=== PATIENT | male | born 1960 | race African-American/Black ===

== ENCOUNTER 2016-08-04 07:49 | Day surgery (SDC) | payer MEDICARE ==
--- NOTE | 2016-08-03 09:30 | HP ---
DATE OF CLINIC: 07/29/2016 RD LUCIO : 1960 PLANNED PROCEDURE: Right Knee Arthroscopic Loose Body Removal, Hardware Removal and Chondroplasty DATE OF SURGERY: August 04, 2016 SURGEON: Marin Juan M.D. HISTORY OF PRESENT ILLNESS Rd Lucio is a 56 year old male. * Medication list reviewed with patient allergy list reviewed with patient. 56-year-old gentleman previously seen by Dr. Centeno and myself who has complaints of right knee pain. A couple of specific things; he's got pain with activity that seems to be related to intra-articular pathology. He also has significant pain in the anterior portion of his knee near some previously placed hardware nito for surgery that was done when he was very young after it sounds like he avulsed his patellar tendon. He is interested in having both of these addressed. He has tried anti-inflammatories without adequate relief of his symptoms. He has complaints of both pain and mechanical symptoms. He localizes most of this pain to the medial joint-line that occurs with standing from a seated position or prolonged walking. In addition, he has pain in the anterior-inferior portion of his knee near previously placed nito. They are tender to palpation and get irritated when he is more active. He states that the pain from the 2 complaint is approximately equivalent and he would very much like to have both of them addressed if he can. He has no other active extremity complaints that he wants to discuss today. He has previously had a shoulder arthroscopy with Dr. Centeno and states that this is doing well. After discussion and review of treatment options, both operative and non-operative, he has elected to proceed with surgery and presents today preoperatively. CURRENT MEDICATION * *Narcotic Contract Miscellaneous (not specified) 0 days, 0 refills * Amitriptyline HCl 25 MG Tablet 1 every bedtime 0 days, 0 refills * AmLODIPine Besylate 10 MG Tablet 1 once a day 0 days, 0 refills * Aspirin 81 MG Tablet Chewable as directed 0 days, 0 refills * B Complex Tablet as directed 0 days, 0 refills * Centrum Tablet as directed 0 days, 0 refills * Chantix 1 MG Tablet 1 twice a day 0 days, 0 refills * Chlorthalidone 25 MG Tablet half a tablet every day 0 days, 0 refills * Colace 100 MG Capsule 1 twice a day 0 days, 0 refills * FLUoxetine HCl 40 MG Capsule 1 once a day 0 days, 0 refills * Hydrocodone-Acetaminophen 5-325 MG Tablet as directed 1tab po 6 hrs prn given by Ivonne Lopez, 0 days, 0 refills * Lortab 10-325 MG Tablet 1-2 tabs every 6 to 8 hours prn pain 0 days, 0 refills * Losartan Potassium 100 MG Tablet 1 once a day 0 days, 0 refills * Polyethylene Glycol 3350 Powder as directed 1/2 cap daily, 0 days, 0 refills * Pravastatin Sodium 20 MG Tablet 1 once a day 0 days, 0 refills * RaNITidine HCl 150 MG Tablet 1 twice a day 0 days, 0 refills * Sildenafil 20 mg Tablet 1 once a day 0 days, 0 refills * TraMADol HCl 50 MG Tablet 1 twice a day called in to pharmacy, 0 days, 0 refills * TraZODone HCl 100 MG Tablet 1 twice a day 0 days, 0 refills * Vitamin D 1000 UNIT Tablet 1 once a day 0 days, 0 refills * Voltaren 1 % Gel as directed Apply a small amount to affected joint up to four times a day., 0 days, 0 refills PAST MEDICAL/SURGICAL HISTORY Reported: Shoulder Arthroscopy Right shoulder scope, RCR, SAD performed by Dr.Brian Centeno on 03/09/2016. Medical: Reported numbness, Reported tingling, history of Arthritis, and Hypertension. Surgical / Procedural: Prior surgery back fusion, laminectomy, foot surgery. Prostate cancer. SOCIAL HISTORY Behavioral: Tobacco use 5 cigs a day, current smoker smokes 1/2 pack per day for the past ten years, and smoking status: Current some day smoker. Work: Occupation. ALLERGIES * Lactose FAMILY HISTORY 4 children living REVIEW OF SYSTEMS No recent constitutional symptoms to include fevers and chills. No recent cardiovascular symptoms to include chest pain or palpitations. No recent respiratory symptoms to include shortness of breath or recent infections. PHYSICAL FINDINGS * Vitals taken 07/29/2016 09:24 am BP-Sitting R 139/92 mmHg BP Cuff Size Regular Pulse Rate-Sitting 65 bpm Temp-Oral 97.2 F Height 72 in Weight 231 lbs Body Mass Index 31.3 kg/m2 Body Surface Area 2.26 m2 Pain Level 5 Ears, Nose, Throat: * ENT: normal. Lungs: * Clear to auscultation. Cardiovascular: Heart Rate and Rhythm: * Normal. Abdomen: * Normal. Neurological: Motor: * Dominant Hand = Right Hand. Patient is a well-developed, well-nourished male in no acute distress. He is awake, alert and conversant throughout the encounter. CARDIOVASCULAR: Intact peripheral pulses on bilateral lower extremities. No significant edema on inspection of bilateral lower extremities. NEUROLOGIC: Patient had intact coordinated composite motion of the bilateral lower extremities and sensation intact to light touch in all distributions of bilateral lower extremities. PSYCHIATRIC: Patient was oriented to person, place and time and displayed appropriate mood and affect during the encounter. SKIN: Exam of the skin on bilateral lower extremities showed no significant scars, lesions, rashes or masses. FOCUSED MUSCULOSKELETAL EXAM: Patient ambulates with antalgia on the right side, shortened stance phase. He has normal resting station of the hips, knees and ankles. His right knee shows no erythema, ecchymosis, he does have a little bit of an effusion. He has tenderness to palpation over the anterior knee in the region of the previously placed nito about the level of his tubercle, particularly the distal one is fairly prominent and there is a little bit of almost callus formation over the skin at this point. His knee has ROM from 0 to about 95-100 degrees. He is stable to varus and valgus stress. He has some mechanical symptoms when he goes through motion. He has a little bit of pseudolaxity to both varus and valgus stress, but he has a firm endpoint on both. Negative anterior and posterior drawer and a negative Luz. He has a warm and well perfused leg distally and he is able to perform a SLR and has normal resting tone. IMAGING Review of his x-rays shows significant osteoarthrosis of his bilateral knees, but certainly right greater than left. He's got some marginal osteophytes, pointing of his tibial spines is primarily of the medial compartment and particularly the patellofemoral compartment changes. He does appear to have a loose body on his [place] view. Please see the radiologists interpretation for additional details. ASSESSMENT 56-year-old gentleman with intra-articular pathology on the right knee consistent with osteoarthritis including some loose bodies as well as symptomatic hardware from a previous surgery in the region of his tibial tubercle on the same side. THERAPY * Patient not eligible for fall risk assessment. PLAN * Unilateral post-traumatic osteoarthritis, right knee Percocet 5-325 MG TABS, Take 1-2 tablets every 4 hours as needed for pain, 14 days, 0 refills * Knee Arthroscopy (Right) with LB removal, hardware removal and chondroplasty CARE TEAM Need To Load Need to Load Ph.D.Medical Genetics SURGICAL CONSENT We have discussed surgical options including right knee arthroscopic LB removal, hardware removal, chondroplasty and non-operative management. The patient was counseled in detail regarding the diagnosis, treatment options available, prognosis of each treatment option and the potential risks and complications. The risks of surgery include, but are not limited to, anesthetic , neurovascular complications, pulmonary embolism, deep vein thrombosis, wound dehiscence, failure of any or all of the discussed procedures, infection of the joint or surrounding soft tissue, need for revision surgery, chronic pain, limitations in activities of daily living, inability to return to work, and loss of normal range of motion or functional use of the extremity. There is the possibility of failure over time that may require additional operative or non-operative treatment. The patient acknowledged that there are a number of perioperative risks not mentioned here and would still like to proceed. The patient is aware of and understands these risks, and wishes to proceed with the proposed surgical procedure and other procedures as indicated at the time of surgery. We will have the patient see their PCP for a preoperative medical risk assessment. The preoperative instructions were reviewed with the patient and all questions were answered. PB/sg
[2016-08-04] MEDS ORDERED: CEFAZOLIN SODIUM 2 GRAM PREMIX 100 ML IV ONE (07:51)
[2016-08-04] MEDS ORDERED: IV START KIT ONE (07:52)
[2016-08-04] MEDS ORDERED: LACTATED RINGERS 1,000 ML ONE (07:52)
[2016-08-04] MEDS ORDERED: CEFAZOLIN SODIUM 2 GRAM PREMIX 100 ML IV PRN (08:15)
[2016-08-04] MEDS ORDERED: LIDOCAINE 2% (PRES FREE) 5 ML VIAL ONE (09:06)
[2016-08-04] MEDS ORDERED: FENTANYL 100 MCG/2 ML VIAL ONE ×2 (09:06→09:28)
[2016-08-04] MEDS ORDERED: MIDAZOLAM HCL 1 MG/ML 2ML VIAL ONE ×2 (09:06→09:28)
[2016-08-04] MEDS ORDERED: PROPOFOL 20 ML IV ONE ×2 (09:06→11:37)
[2016-08-04] MEDS ORDERED: ROPIVACAINE 0.5% 30 ML VIAL ONE (09:52)
[2016-08-04] MEDS ORDERED: NERVE BLOCK PROCEDURAL TRAY 1 EACH ONE (09:52)
[2016-08-04] MEDS ORDERED: SUCCINYLCHOLINE CHL 20 MG/ML DOSE ONE (10:41)
[2016-08-04] MEDS ORDERED: LACTATED RINGERS 1,000 ML IV SCH ×2 (10:45→12:27)
[2016-08-04] MEDS ORDERED: HYDRALAZINE HCL 20 MG/1 ML VIAL IV PRN (10:45)
[2016-08-04] MEDS ORDERED: ONDANSETRON 4 MG/2ML 2 ML VIAL IV PRN ×2 (10:45→12:27)
[2016-08-04] MEDS ORDERED: MEPERIDINE 25 MG/ML SYRINGE IV PRN (10:45)
[2016-08-04] MEDS ORDERED: NALOXONE HCL 0.4 MG/ML VIAL IV PRN (10:45)
[2016-08-04] MEDS ORDERED: PROMETHAZINE HCL 25 MG/ML VIAL IM PRN (10:45)
[2016-08-04] MEDS ORDERED: ATROPINE SULFATE 0.4 MG/1 ML VIAL IV PRN (10:45)
[2016-08-04] MEDS ORDERED: HYDROMORPHONE HCL 1 MG/ML SYRINGE IV PRN ×2 (10:45→12:27)
[2016-08-04] MEDS ORDERED: FENTANYL 100 MCG/2 ML VIAL IV PRN (10:45)
[2016-08-04] MEDS ORDERED: LABETALOL HCL 5 MG/ML 20ML VIAL IV PRN (10:45)
[2016-08-04] MEDS ORDERED: HYDROMORPHONE HCL 2 MG/ML SYRINGE ONE (10:50)
[2016-08-04] MEDS ORDERED: EPHEDRINE SULFATE UD SYR 25 MG 25 MG/5 ML SYRINGE IV ONE (10:59)
[2016-08-04] MEDS ORDERED: VASOPRESSIN 20 UNITS/ML VIAL ONE (11:06)
[2016-08-04] MEDS ORDERED: GLYCOPYRROLATE 0.2 MG/ML 1ML VIAL ONE (11:07)
[2016-08-04] MEDS ORDERED: DEXAMETHASONE SOD PHOS 4 MG/1 ML VIAL ONE (11:09)
[2016-08-04] MEDS ORDERED: OXYCODONE HCL 5 MG TABLET PO PRN (12:27)
[2016-08-04] MEDS ORDERED: ACETAMINOPHEN 325 MG TABLET PO PRN (12:27)
[2016-08-04] MEDS ORDERED: DIPHENHYDRAMINE HCL 50 MG/1 ML VIAL IV PRN (12:27)
[2016-08-04] MEDS ORDERED: OXYCODONE HCL 5 MG TABLET ONE (13:06)
--- NOTE | 2016-08-04 13:14 | RAD ---
INTRAOPERATIVE FLUOROSCOPY HISTORY: Hardware removal. TECHNIQUE: 4.2 seconds of fluoroscopy time was provided for Dr. Juan for purposes of procedural guidance. 1 fluoroscopic spot images were submitted for review. FINDINGS: The tip of a clamp projects over the proximal right tibia. Redemonstration of tibial tubercle nito. IMPRESSION: Fluoroscopy provided for procedural guidance.
--- NOTE | 2016-08-09 16:58 | PCMBPN ---
Brief Post Op Note: Date of Procedure: 08/04/16 Start Time: 1100 Preoperative Diagnosis: 1. right knee loose bodies, chondromalacia, symptomatic hardware Postoperative Diagnosis: 1. right knee medial meniscus tear, chondromalacia, symptomatic hardware Procedure: right knee arthroscopy with partial medial meniscectomy, shaving chondroplasty, open removal of hardware Surgeon: Marin Juan MD Assist: Mark Lagos PA-C Anesthesia: Feliberto Peterson Findings: as above Condition: stable to PACU Complications: none IV Fluids: 800 mLs of LR Urine Output: 0 mLs Estimated Blood Loss: 20 mLs Tourniquet Time: 26 min at 250 mm Hg Specimens: none Implants: none Drains: none Marin Juan MD
--- NOTE | 2016-08-10 10:41 | OP ---
Rd LUCIO : 1960 [id number] DATE OF PROCEDURE: August 04, 2016 PREOPERATIVE DIAGNOSES: Right knee loose bodies, chondromalacia and symptomatic hardware. POSTOPERATIVE DIAGNOSES: Right knee medial meniscus tear, chondromalacia, and symptomatic hardware. PROCEDURE PERFORMED: RIGHT KNEE ARTHROSCOPY WITH PARTIAL MEDIAL MENISCECTOMY, SHAVING CHONDROPLASTY OF THE MEDIAL FEMORAL CONDYLE AND OPEN REMOVAL OF HARDWARE. SURGEON: Marin Juan M.D. CUSTOMER SERVICE SALES CONSULTANT: Bret Lagos P.A.-C. ANESTHESIA: Kiki IveyNJohn. SPECIMENS: No material was sent to the laboratory. ESTIMATED BLOOD LOSS: 20 mL FLUIDS REPLACED: 800 mL of crystalloid. TOURNIQUET TIME: 26 minutes at 250 mmHg. URINE OUTPUT: None. IMPLANTS: No implants placed, two nito were removed. DRAINS: No drains. INDICATIONS: This is a 56-year-old gentleman with long-standing right knee pain who has a history of a tibial tubercle osteotomy of some kind with a repair using a couple of nito. The prominence of these nito is painful and the patient also has pain over the medial portion of his knee. His physical exam is suggestive of loose bodies versus meniscal pathology as well as some chondromalacia and his radiographic findings support this. He desires a definitive management with removal of his nito and an arthroscopy for debridement of the knee. DESCRIPTION OF PROCEDURE: The patient was identified in the preoperative holding area where he was marked with an indelible marker by the operating surgeon. He was taken to the operating room where he was placed in the supine position operating room table. General anesthesia was induced. Perioperative antibiotics were administered. A well padded pre-calibrated nonsterile tourniquet was placed on his right upper thigh. He was prepped and draped in the usual sterile fashion for surgery. An operative time out was performed and confirmed by all members of the operative team. The patient's leg was elevated and exsanguinated using an Esmarch bandage and the tourniquet was inflated to 250 mmHg. His previous anterior knee incision was reopened at its inferior margin and dissection was carried down using intraoperative fluoroscopy to localize the nito. We identified one staple distal to the insertion of the patellar tendon and we were able to grasp this and remove it. The other one was proximal to the tubercle into the insertion of the patellar tendon so a split was made in line with the fibers of the patellar tendons centrally. This was retracted and the staple was identified and removed through this split. The wound was copiously irrigated with sterile saline. The tendon was re-apposed with #0 Vicryl and then #2-0 Vicryl in the paratenon and #3-0 Vicryl in the subcutaneous tissues and Nylon in the skin. The knee was flexed down and our lateral arthroscopic portal was created. The 30 degree viewing arthroscope was inserted into the knee. Optics were directed medially and the medial portal was localized and created in a standard fashion. Diagnostic arthroscopy was performed which demonstrated no loose bodies in the gutters. There was significant degenerative wear over the medial portion over the medial femoral condyle distally as well as a medial meniscus tear. The ACL and PCL were intact. The lateral meniscus was largely intact. There was some grade 2 and 3 changes over the lateral femoral condyle. Examination of the far distal and anterior portion of the medial femoral condyle showed a large area of complete grade 4 changes. This carried over into the trochlea and the patellofemoral joint showed grade 4 changes on both sides patellar and trochlear. Inspection of the posterior knee showed no loose bodies floating freely. It was felt that the osseous bodies seen on the x-rays were embedded in the posterior capsule. At this point the probe was exchanged for an arthroscopic biter which was used to perform a partial medial meniscectomy. This was exchanged for a resector shaver which was used to smooth down this and complete the partial medial meniscectomy. We also performed some shaving chondroplasty of loose chondral flaps around the margins of his full thickness cartilage loss. No attempt was made to dissect the posterior capsule in order to identify this posterior osseous body that would represent an increased risk in the procedure without a clear benefit when the body was not moving freely within the joint. At this point we felt that we had addressed the patient's intra-articular pathology so the camera and insurance were removed from the knee. Portal sites were closed with #4-0 Nylon and a sterile dressing of Xeroform, fluffs, ABDs, web roll and an [place] bandage was applied. The tourniquet was deflated, the drapes were removed. The patient was awakened from his anesthesia and extubated in the operating room without difficulty, transferred to a stretcher and taken postoperatively to the postanesthesia care unit in stable condition. There were no observed intraoperative consultations during this procedure. Job [id number] Cc: [facility]
== END 2016-08-04 14:07 | disposition home or self-care (01) ==
LOC: SDC 07:49
PROVIDERS: ATTEND Orthopaedic Surgery
PROC: 0SBC4ZZ Excision of Right Knee Joint, Percutaneous Endoscopic Approach (ICD-10-PCS; principal; 2016-08-04)
PROC: 0SPC04Z Removal of Internal Fixation Device from Right Knee Joint, Open Approach (ICD-10-PCS; 2016-08-04)
DX: T84.84XA Pain due to internal orthopedic prosthetic devices, implants and grafts, initial encounter (principal); S83.241A Other tear of medial meniscus, current injury, right knee, initial encounter; M17.11 Unilateral primary osteoarthritis, right knee; M94.261 Chondromalacia, right knee; Z79.82 Long term (current) use of aspirin; Z79.891 Long term (current) use of opiate analgesic; I10 Essential (primary) hypertension; F17.210 Nicotine dependence, cigarettes, uncomplicated
CPT/HCPCS: 76000; 73560; 29881; 20680; J1170; J3010 ×2; J1100; J2795; A9270; J2250 ×2; J2405; J7120; J0690

== ENCOUNTER 2016-08-05 18:32 | Emergency (ER) | payer MEDICARE ==
[2016-08-05] MEDS ORDERED: OXYCODONE HCL 5 MG TABLET ONE (19:35)
[2016-08-05] MEDS ORDERED: KETOROLAC TROMETHAMINE 60 MG/2 ML VIAL ONE (19:35)
== END 2016-08-05 19:50 | disposition home or self-care (01) ==
LOC: ED 18:32
DX: T81.89XA Other complications of procedures, not elsewhere classified, initial encounter (principal); I10 Essential (primary) hypertension; F17.210 Nicotine dependence, cigarettes, uncomplicated; Y83.8 Other surgical procedures as the cause of abnormal reaction of the patient, or of later complication, without mention of misadventure at the time of the procedure; Y92.9 Unspecified place or not applicable
CPT/HCPCS: 99283 ×2; 96372; A9270; J1885

== ENCOUNTER 2016-08-13 15:15 | Emergency (ER) | payer MEDICARE | END 2016-08-13 18:19 | disposition home or self-care (01) | LOC: ED 15:15 | DX: M25.461 Effusion, right knee (principal); I10 Essential (primary) hypertension; F17.210 Nicotine dependence, cigarettes, uncomplicated; Z98.890 Other specified postprocedural states ==